=== PATIENT | female | born 1945 | race Caucasian/White ===

== ENCOUNTER 2018-10-22 11:40 | Day surgery (SDC) | payer OTHER, MEDICARE ==
[2018-10-22] MEDS ORDERED: POLYMYXIN/BACITRACIN 1L IRRIG (12:14)
[2018-10-22] MEDS ORDERED: ROCURONIUM 50 MG INJ (12:27)
[2018-10-22] MEDS ORDERED: FENTAnyl 50 MCG/ML VIAL (12:27)
[2018-10-22] MEDS ORDERED: LIDOCAINE 2% (SDV) 5 ML INJ (12:27)
[2018-10-22] MEDS ORDERED: ETOMIDATE 20 MG INJ (12:27)
[2018-10-22] MEDS ORDERED: CEFAZOLIN 1 GM INJ (13:36)
[2018-10-22] MEDS ORDERED: FAMOTIDINE 20 MG INJ (13:40)
[2018-10-22] MEDS ORDERED: METOCLOPRAMIDE 10 MG INJ (13:40)
[2018-10-22] MEDS ORDERED: ONDANSETRON 4 MG INJ (13:40)
[2018-10-22] MEDS ORDERED: IOHEXOL 300MG/ML 30 ML BTL (14:27)
[2018-10-22] MEDS ORDERED: LABETALOL HCL 20MG INJ IV (14:30)
[2018-10-22] MEDS ORDERED: HYDROmorphONE 1 MG/5 ML IV SYRINGE IV ×2 (14:30)
[2018-10-22] MEDS ORDERED: OXYCODONE/ACETAMINOPHEN (5/325) TAB PO ×2 (14:30)
[2018-10-22] MEDS ORDERED: EPHEDrine 25 MG/5 ML SYG (14:46)
[2018-10-22] MEDS: THROMBIN 5000 UNIT (RECOTHROM) VIAL (15:00)
[2018-10-22] MEDS: HEPARIN 1000 UNITS/ML 10 ML INJ ×2 (15:00→15:07)
[2018-10-22] MEDS: GELATIN SIZE 100 SPONGE (15:00)
[2018-10-22] MEDS ORDERED: HEPARIN 1000 UNITS/ML 10 ML INJ (15:04)
[2018-10-22] MEDS: LIDOCAINE 1% (MPF) 30 ML INJ (15:06)
[2018-10-22] MEDS: BUPIVACAINE 0.25% (MPF) 30 ML INJ (15:06)
[2018-10-22] MEDS ORDERED: SUGAMMADEX SODIUM 200 MG/2 ML VIAL IV (15:07)
[2018-10-22] MEDS: hydrALAzine 20 MG INJ IV (16:11)
[2018-10-22] MEDS: HYDROmorphONE 1 MG/5 ML IV SYRINGE IV (16:20)
[2018-10-22] MEDS: ONDANSETRON 4 MG INJ IV (16:20)
== END 2018-10-22 19:00 | disposition home or self-care (01) ==
LOC: SUR 19:00 → SDS 11:40
DX: I12.0 Hypertensive chronic kidney disease with stage 5 chronic kidney disease or end stage renal disease (principal); E11.22 Type 2 diabetes mellitus with diabetic chronic kidney disease; N18.6 End stage renal disease; I25.10 Atherosclerotic heart disease of native coronary artery without angina pectoris; Z95.5 Presence of coronary angioplasty implant and graft; E78.5 Hyperlipidemia, unspecified; I48.91 Unspecified atrial fibrillation; Z87.891 Personal history of nicotine dependence
CPT/HCPCS: 36558; 71045

== ENCOUNTER 2018-11-19 10:40 | Emergency (ER) | payer SELFPAY, OTHER | END 2018-11-19 11:59 | disposition left against medical advice (07) | LOC: E/R 11:59 | DX: Z53.21 Procedure and treatment not carried out due to patient leaving prior to being seen by health care provider (principal) ==

== ENCOUNTER 2018-11-22 05:45 | Inpatient (IN) | payer MEDICARE, OTHER ==
[2018-11-22] MEDS ORDERED: FENTAnyl 50 MCG/ML VIAL (06:31)
[2018-11-22] MEDS ORDERED: IODIXANOL LOCM 100 ML BTL ×3 (06:31→08:07)
[2018-11-22] MEDS ORDERED: MIDAZOLAM 1 MG/ML 2 ML INJ (06:31)
[2018-11-22] MEDS ORDERED: LIDOCAINE 1% (MDV) 20 ML INJ (06:34)
[2018-11-22] MEDS ORDERED: NITROGLYCERIN (IC) 100 MCG/ML INJ (06:35)
[2018-11-22] MEDS ORDERED: hydrALAzine 20 MG INJ (08:07)
[2018-11-22] MEDS ORDERED: HEPARIN 25000 UNIT/250 ML ×2 (09:12→10:46)
[2018-11-22] MEDS: IODIXANOL LOCM 50 ML BTL (09:13)
[2018-11-22] MEDS: SOD CHLORIDE 0.9% 100 ML (09:13)
[2018-11-22] MEDS: IODIXANOL LOCM 100 ML BTL (09:13)
[2018-11-22] MEDS ORDERED: ASPIRIN 81 MG TAB PO (09:30)
[2018-11-22] MEDS ORDERED: CLOPIDOGREL 75 MG TAB PO (09:30)
[2018-11-22] MEDS ORDERED: GELATIN SIZE 100 SPONGE (09:54)
[2018-11-22] MEDS ORDERED: IOHEXOL 300MG/ML 30 ML BTL (09:58)
[2018-11-22] MEDS ORDERED: HEPARIN 1000 UNITS/ML 10 ML INJ IV (10:00)
[2018-11-22] MEDS: HEPARIN 1000 UNITS/ML 10 ML INJ IV (10:00)
[2018-11-22] MEDS ORDERED: SUCCINYLCHOLINE CHLORIDE 100 MG/5 ML SYG IV (10:29)
[2018-11-22] MEDS ORDERED: GLYCOPYRROLATE 0.4 MG INJ (10:29)
[2018-11-22] MEDS ORDERED: NEOSTIGMINE 3 MG/3 ML SYRINGE (10:29)
[2018-11-22] MEDS ORDERED: PROPOFOL 20 ML (10:29)
[2018-11-22] MEDS ORDERED: ROCURONIUM 50 MG INJ (10:29)
[2018-11-22] MEDS ORDERED: EPHEDrine 25 MG/5 ML SYG (10:29)
[2018-11-22] MEDS ORDERED: LIDOCAINE 2% (SDV) 5 ML INJ (10:29)
[2018-11-22] MEDS ORDERED: VANCOMYCIN 1 GM (PMX) 250 ML (11:01)
[2018-11-22] MEDS: HEPARIN 1000 UNITS/ML 10 ML INJ (11:33)
[2018-11-22] MEDS ORDERED: ONDANSETRON 4 MG INJ (12:28)
[2018-11-22] MEDS ORDERED: METOCLOPRAMIDE 10 MG INJ (12:28)
[2018-11-22] MEDS ORDERED: METOCLOPRAMIDE 10 MG INJ IV (12:30)
[2018-11-22] MEDS ORDERED: hydrALAzine 20 MG INJ IV (12:30)
[2018-11-22] MEDS ORDERED: ONDANSETRON 4 MG INJ IV (12:30)
[2018-11-22] MEDS ORDERED: HYDROmorphONE 0.5 MG/0.5 ML SYG IV ×3 (12:30)
[2018-11-22] MEDS ORDERED: FENTAnyl 50 MCG/ML VIAL IV ×3 (12:30)
[2018-11-22] MEDS ORDERED: MEPERIDINE 25 MG INJ IV (12:30)
[2018-11-22] MEDS ORDERED: MIDAZOLAM 1 MG/ML 2 ML INJ IV (12:30)
[2018-11-22] MEDS ORDERED: EPHEDrine 25 MG/5 ML SYG IV (12:30)
[2018-11-22] MEDS ORDERED: LABETALOL HCL 20MG INJ IV (12:30)
[2018-11-22] MEDS ORDERED: DIPHENHYDRAMINE 50 MG INJ IV (12:30)
[2018-11-22] MEDS: GELATIN SIZE 100 SPONGE TOP (12:34)
[2018-11-22] MEDS: THROMBIN 5000 UNIT (RECOTHROM) VIAL (12:34)
[2018-11-22] MEDS: HEPARIN 25000 UNITS/250 ML 250 ML IV (14:11)
[2018-11-22 14:33] LABS: ADD MAN DIFF? NO
[2018-11-22 14:38] LABS: BASOPHILS % 0.3 % (0.0-2.0); EOSINOPHILS # 0.1 10^3/ul (0.0-0.5); HEMATOCRIT 25.6 % (37.0-47.0); HEMOGLOBIN 7.5 g/dl (12.0-16.0); LYMPHOCYTES # 0.9 10^3/ul (0.8-2.9); LYMPHOCYTES % 9.7 % (15.0-51.0); MEAN CORPUSCULAR HEMOGLOBIN 29.3 pg (29.0-33.0); MEAN CORPUSCULAR HGB CONC 29.3 g/dl (32.0-37.0); MEAN PLATELET VOLUME 11.6 fl (7.4-10.4); MONOCYTE # 0.7 10^3/ul (0.3-0.9); MONOCYTES % 7.4 % (0.0-11.0); NEUTROPHIL # 7.5 10^3/ul (1.6-7.5); PLATELET COUNT 161 10^3/UL (140-415); RED BLOOD COUNT 2.56 10^6/ul (4.20-5.40)
[2018-11-22 14:38] LABS: WHITE BLOOD COUNT 9.3 10^3/ul (4.8-10.8)
[2018-11-22 14:57] LABS: ALANINE AMINOTRANSFERASE 7 IU/L (13-69); ALBUMIN 3.3 g/dl (3.3-4.9); ALBUMIN/GLOBULIN RATIO 1.22; ALKALINE PHOSPHATASE 113 IU/L (42-121); ANION GAP 10 (5-13); ASPARTATE AMINO TRANSFERASE 19 IU/L (15-46); BILIRUBIN,INDIRECT 0.2 mg/dl (0-1.1); BILIRUBIN,TOTAL 0.2 mg/dl (0.2-1.3); BLOOD UREA NITROGEN 40 mg/dl (7-20); CALCIUM 8.4 mg/dl (8.4-10.2); CARBON DIOXIDE 24 mmol/L (21-31); CHLORIDE 104 mmol/L (97-110); CREATININE 3.16 mg/dl (0.44-1.00); GLUCOSE 131 mg/dl (70-220); POTASSIUM 3.7 mmol/L (3.5-5.1); SODIUM 138 mmol/L (135-144)
[2018-11-22 15:02] LABS: INR 1.05; PROTIME 13.8 Sec (11.9-14.9); PT RATIO 1.1
[2018-11-22 15:16] LABS: PARTIAL THROMBOPLASTIN TIME 114.7 Sec (23.0-35.0)
[2018-11-22] MEDS ORDERED: GLUCAGON 1 MG INJ IM (16:00)
[2018-11-22] MEDS ORDERED: GLUCOSE GEL 15 GRAM TUBE BUCCAL (16:00)
[2018-11-22] MEDS ORDERED: GLUCOSE GEL 15 GRAM TUBE PO ×2 (16:00)
[2018-11-22] MEDS ORDERED: DEXTROSE 50% 50 ML SYRINGE IV ×2 (16:00)
[2018-11-22] MEDS: CALCIUM ACETATE 667 MG CAP PO (17:46)
[2018-11-22 18:06] LABS: IMMEDIATE SPIN CROSSMATCH 1 1
[2018-11-22] MEDS: INSULIN ASPART [NOVOLOG] 3 ML PEN SC ×2 (18:38→20:31)
[2018-11-22] MEDS: ALPRAZOLAM 0.5 MG TAB PO (19:54)
[2018-11-22] MEDS: HYDROCODONE/APAP (10/325) TAB PO (20:03)
[2018-11-22] MEDS: DOCUSATE SODIUM 100 MG CAP PO (20:28)
[2018-11-22] MEDS: ATORVASTATIN 40 MG TAB PO (20:28)
[2018-11-22 20:53] LABS: PARTIAL THROMBOPLASTIN TIME 98.9 Sec (23.0-35.0)
[2018-11-23] MEDS: HYDROCODONE/APAP (10/325) TAB PO ×3 (00:06→23:20)
[2018-11-23] MEDS: ACCU-CHEK XX (02:01)
[2018-11-23 02:45] LABS: ADD MAN DIFF? NO
[2018-11-23 02:46] LABS: BASOPHILS % 0.2 % (0.0-2.0); EOSINOPHILS # 0.1 10^3/ul (0.0-0.5); EOSINOPHILS % 0.5 % (0.0-7.0); HEMATOCRIT 26.2 % (37.0-47.0); LYMPHOCYTES # 0.9 10^3/ul (0.8-2.9); LYMPHOCYTES % 9.3 % (15.0-51.0); MEAN CORPUSCULAR HEMOGLOBIN 30.1 pg (29.0-33.0); MEAN CORPUSCULAR HGB CONC 30.5 g/dl (32.0-37.0); MEAN CORPUSCULAR VOLUME 98.5 fl (82.0-101.0); MEAN PLATELET VOLUME 11.1 fl (7.4-10.4); MONOCYTE # 0.8 10^3/ul (0.3-0.9); MONOCYTES % 8.9 % (0.0-11.0); NEUTROPHIL # 7.4 10^3/ul (1.6-7.5); NEUTROPHILS % 80.6 % (39.0-77.0); PLATELET COUNT 150 10^3/UL (140-415); RED BLOOD COUNT 2.66 10^6/ul (4.20-5.40); RED CELL DISTRIBUTION WIDTH 16.4 % (11.5-14.5)
[2018-11-23 02:46] LABS: WHITE BLOOD COUNT 9.2 10^3/ul (4.8-10.8)
[2018-11-23 03:02] LABS: ANION GAP 10 (5-13); BLOOD UREA NITROGEN 44 mg/dl (7-20); CALCIUM 8.4 mg/dl (8.4-10.2); CARBON DIOXIDE 23 mmol/L (21-31); CHLORIDE 103 mmol/L (97-110); CREATININE 3.92 mg/dl (0.44-1.00); GLUCOSE 147 mg/dl (70-220); POTASSIUM 4.6 mmol/L (3.5-5.1); SODIUM 136 mmol/L (135-144)
[2018-11-23 03:15] LABS: PARTIAL THROMBOPLASTIN TIME 87.6 Sec (23.0-35.0)
[2018-11-23] MEDS: CALCIUM ACETATE 667 MG CAP PO ×4 (07:35→17:48)
[2018-11-23] MEDS: INSULIN ASPART [NOVOLOG] 3 ML PEN SC ×4 (08:16→20:30)
[2018-11-23] MEDS: METOPROLOL 25 MG TAB PO ×3 (08:18→20:23)
[2018-11-23] MEDS: DOCUSATE SODIUM 100 MG CAP PO ×3 (08:18→20:26)
[2018-11-23] MEDS: FAMOTIDINE 20 MG TAB PO ×3 (08:18→20:22)
[2018-11-23] MEDS: PANTOPRAZOLE (EC) 40 MG TAB PO ×2 (08:19→09:00)
[2018-11-23] MEDS: ASPIRIN 81 MG TAB PO ×2 (08:19→09:00)
[2018-11-23] MEDS ORDERED: AMLODIPINE 10 MG TAB PO (09:00)
[2018-11-23] MEDS: morphine 2 MG INJ IV ×4 (12:28→23:20)
[2018-11-23 14:22] LABS: HEPATITIS B SURFACE ANTIGEN NEGATIVE (NEGATIVE)
[2018-11-23] MEDS: HEPARIN 25000 UNITS/250 ML 250 ML IV (14:42)
[2018-11-23] MEDS: ALTEPLASE (CATHFLO) 2 MG INJ CATHETER (15:50)
[2018-11-23] MEDS: EPOETIN ALFA-EPBX (ESRD) 10,000 UNIT/ML VIAL SC (17:49)
[2018-11-23] MEDS: ALPRAZOLAM 0.5 MG TAB PO (19:15)
[2018-11-23] MEDS: ATORVASTATIN 40 MG TAB PO (20:22)
[2018-11-23] MEDS ORDERED: THROMBIN 5000 UNIT (RECOTHROM) VIAL (23:50)
[2018-11-23] MEDS ORDERED: LIDOCAINE 1% (MPF) 30 ML INJ (23:50)
[2018-11-23] MEDS ORDERED: GELATIN SIZE 100 SPONGE (23:50)
[2018-11-23] MEDS ORDERED: BUPIVACAINE 0.5% (SDV) 30 ML INJ (23:50)
[2018-11-23] MEDS ORDERED: HEPARIN 1000 UNITS/ML 10 ML INJ (23:51)
[2018-11-24] MEDS ORDERED: MIDAZOLAM 1 MG/ML 2 ML INJ (00:11)
[2018-11-24] MEDS ORDERED: FENTAnyl 50 MCG/ML VIAL (00:12)
[2018-11-24] MEDS ORDERED: ONDANSETRON 4 MG INJ (00:12)
[2018-11-24] MEDS ORDERED: VANCOMYCIN 1 GM (PMX) 250 ML (00:34)
[2018-11-24] MEDS: HEPARIN 1000 UNITS/ML 10 ML INJ (00:59)
[2018-11-24] MEDS ORDERED: SUGAMMADEX SODIUM 200 MG/2 ML VIAL IV (01:48)
[2018-11-24] MEDS: ACCU-CHEK XX (02:00)
[2018-11-24 05:05] LABS: ADD MAN DIFF? NO
[2018-11-24 05:10] LABS: BASOPHILS % 0.2 % (0.0-2.0); EOSINOPHILS # 0.1 10^3/ul (0.0-0.5); EOSINOPHILS % 0.7 % (0.0-7.0); HEMATOCRIT 25.7 % (37.0-47.0); HEMOGLOBIN 7.7 g/dl (12.0-16.0); LYMPHOCYTES # 0.7 10^3/ul (0.8-2.9); LYMPHOCYTES % 8.2 % (15.0-51.0); MEAN CORPUSCULAR HEMOGLOBIN 29.4 pg (29.0-33.0); MEAN CORPUSCULAR VOLUME 98.1 fl (82.0-101.0); MEAN PLATELET VOLUME 11.9 fl (7.4-10.4); MONOCYTE # 0.7 10^3/ul (0.3-0.9); MONOCYTES % 8.5 % (0.0-11.0); NEUTROPHIL # 6.9 10^3/ul (1.6-7.5); NEUTROPHILS % 81.8 % (39.0-77.0); PLATELET COUNT 138 10^3/UL (140-415); RED BLOOD COUNT 2.62 10^6/ul (4.20-5.40); RED CELL DISTRIBUTION WIDTH 16.6 % (11.5-14.5)
[2018-11-24 05:10] LABS: WHITE BLOOD COUNT 8.5 10^3/ul (4.8-10.8)
[2018-11-24 05:35] LABS: ANION GAP 10 (5-13); BLOOD UREA NITROGEN 29 mg/dl (7-20); CALCIUM 8.7 mg/dl (8.4-10.2); CARBON DIOXIDE 25 mmol/L (21-31); CHLORIDE 102 mmol/L (97-110); CREATININE 3.13 mg/dl (0.44-1.00); GLUCOSE 127 mg/dl (70-220); MAGNESIUM 1.9 mg/dl (1.7-2.5); PHOSPHORUS 7.5 mg/dl (2.5-4.9); POTASSIUM 4.2 mmol/L (3.5-5.1); SODIUM 137 mmol/L (135-144)
[2018-11-24 07:15] LABS: PARTIAL THROMBOPLASTIN TIME > 180.0 Sec (23.0-35.0)
[2018-11-24] MEDS: DOCUSATE SODIUM 10 MG/ML (10ML CUP) PO ×2 (09:17→20:13)
[2018-11-24] MEDS: PANTOPRAZOLE (EC) 40 MG TAB PO (09:17)
[2018-11-24] MEDS: morphine 2 MG INJ IV (09:17)
[2018-11-24] MEDS: ASPIRIN 81 MG TAB PO (09:18)
[2018-11-24] MEDS: METOPROLOL 25 MG TAB PO ×2 (09:18→20:14)
[2018-11-24] MEDS: FAMOTIDINE 20 MG TAB PO (09:18)
[2018-11-24] MEDS: CALCIUM ACETATE 667 MG CAP PO ×3 (09:18→18:45)
[2018-11-24] MEDS: INSULIN ASPART [NOVOLOG] 3 ML PEN SC ×4 (09:35→20:54)
[2018-11-24 10:21] LABS: PARTIAL THROMBOPLASTIN TIME 44.2 Sec (23.0-35.0)
[2018-11-24] MEDS: SOD CHLORIDE 0.9% 100 ML (10:40)
[2018-11-24] MEDS: IOHEXOL 100 ML (10:40)
[2018-11-24] MEDS: HEPARIN 25000 UNITS/250 ML 250 ML IV (11:33)
[2018-11-24 13:29] LABS: PARTIAL THROMBOPLASTIN TIME 29.7 Sec (23.0-35.0)
[2018-11-24] MEDS: ACETAMINOPHEN 325 MG TAB PO (18:44)
[2018-11-24] MEDS: ATORVASTATIN 40 MG TAB PO (20:13)
[2018-11-24] MEDS: CEFEPIME 1GM/50 ML (PMX) 50 ML IVPB (20:14)
[2018-11-24 20:15] LABS: PARTIAL THROMBOPLASTIN TIME 58.9 Sec (23.0-35.0)
[2018-11-24 20:25] LABS: LACTIC ACID 2.7 mmol/L (0.5-2.0)
[2018-11-24 22:48] LABS: PROCALCITONIN 1.41 ng/mL (0.00-0.10)
[2018-11-25] MEDS: ACETAMINOPHEN 325 MG TAB PO (00:36)
[2018-11-25] MEDS: ACCU-CHEK XX (02:00)
[2018-11-25 03:23] LABS: WHITE BLOOD COUNT 15.2 10^3/ul (4.8-10.8)
[2018-11-25 03:23] LABS: ABNORMAL IP MESSAGE 1; HEMATOCRIT 24.9 % (37.0-47.0); HEMOGLOBIN 7.3 g/dl (12.0-16.0); MEAN CORPUSCULAR HGB CONC 29.3 g/dl (32.0-37.0); MEAN CORPUSCULAR VOLUME 98.8 fl (82.0-101.0); MEAN PLATELET VOLUME 12.3 fl (7.4-10.4); PLATELET COUNT 174 10^3/UL (140-415); RED BLOOD COUNT 2.52 10^6/ul (4.20-5.40); RED CELL DISTRIBUTION WIDTH 16.3 % (11.5-14.5)
[2018-11-25 03:31] LABS: POSITIVE DIFF @See below
[2018-11-25 03:32] LABS: ADD MAN DIFF? YES
[2018-11-25 03:47] LABS: PARTIAL THROMBOPLASTIN TIME 105.6 Sec (23.0-35.0)
[2018-11-25 03:47] LABS: ANION GAP 17 (5-13); BLOOD UREA NITROGEN 47 mg/dl (7-20); CALCIUM 8.5 mg/dl (8.4-10.2); CARBON DIOXIDE 17 mmol/L (21-31); CHLORIDE 99 mmol/L (97-110); GLUCOSE 167 mg/dl (70-220); MAGNESIUM 2.1 mg/dl (1.7-2.5); PHOSPHORUS 10.9 mg/dl (2.5-4.9); POTASSIUM 5.6 mmol/L (3.5-5.1); SODIUM 133 mmol/L (135-144)
[2018-11-25 03:58] LABS: CREATININE 4.63 mg/dl (0.44-1.00)
[2018-11-25 04:29] LABS: ANISOCYTOSIS 1+ (0-0); BAND NEUTROPHILS #M 3.8 10^3/ul (0.0-0.6); BAND NEUTROPHILS % (M) 25 % (0-4); EOSINOPHILS % (M) 1 % (0-7); LYMPHOCYTES % (M) 7 % (15-51); MONOCYTE #M 1.2 10^3/ul (0.3-0.9); MONOCYTES % (M) 8 % (0-11); MYELOCYTES #M 0.1 10^3/ul (0.0-0.0); MYELOCYTES % (M) 1 % (0-0); PLATELET ESTIMATE NORMAL; POIKILOCYTOSIS 1+ (0-0); POLYCHROMASIA 1+ (0-0); SEG NEUT #M 9.4 10^3/ul (1.6-7.5); SEGMENTED NEUTROPHILS (M) % 58 % (39-77); SMUDGE%M 1 % (0-0)
[2018-11-25] MEDS ORDERED: VANCOMYCIN IV PER PHARMACY XX (06:30)
[2018-11-25] MEDS: VANCOMYCIN 500 MG (PMX) 100 ML IVPB (06:34)
[2018-11-25] MEDS ORDERED: AMIODARONE 150 MG INJ (07:00)
[2018-11-25] MEDS ORDERED: EPINEPHrine 0.1 MG/ML SYG ×2 (07:00)
[2018-11-25] MEDS ORDERED: NA BICARBONATE 8.4% 50 ML SYG ×3 (07:00→17:22)
[2018-11-25] MEDS ORDERED: CA CHLORIDE 10% 10 ML SYRINGE (07:00)
[2018-11-25] MEDS ORDERED: DEXTROSE 50% 50 ML SYRINGE (07:00)
[2018-11-25] MEDS: SOD CHLORIDE 0.9% 500 ML IV (08:20)
[2018-11-25] MEDS: SOD CHLORIDE 0.9% 1,000 ML IV (08:21)
[2018-11-25] MEDS: CALCIUM ACETATE 667 MG CAP PO ×2 (08:24→12:57)
[2018-11-25] MEDS: INSULIN ASPART [NOVOLOG] 3 ML PEN SC ×2 (08:38→13:01)
[2018-11-25 11:08] LABS: LACTIC ACID 4.9 mmol/L (0.5-2.0)
[2018-11-25 11:12] LABS: PARTIAL THROMBOPLASTIN TIME 115.1 Sec (23.0-35.0)
[2018-11-25 12:07] LABS: PROCALCITONIN 16.69 ng/mL (0.00-0.10)
[2018-11-25] MEDS: DOCUSATE SODIUM 10 MG/ML (10ML CUP) PO (12:57)
[2018-11-25] MEDS: ASPIRIN 81 MG TAB PO (12:57)
[2018-11-25] MEDS: FAMOTIDINE 20 MG TAB PO (12:57)
[2018-11-25] MEDS: SOD CHLORIDE 0.9% 100 ML (12:58)
[2018-11-25] MEDS: IOHEXOL 100 ML (12:58)
[2018-11-25] MEDS ORDERED: DOPamine-D5W 1.6 MG/ML 250 ML (16:56)
== END 2018-11-25 17:34 | disposition expired | DRG 252 ==
LOC: SDS 05:45 → REC 09:01 → TEL 09:01 → ICU 09:39
PROVIDERS: Internal Medicine Interventional Cardiology; Pediatrics Neonatal-Perinatal Medicine
PROC: 4A023N7 Measurement of Cardiac Sampling and Pressure, Left Heart, Percutaneous Approach (ICD-10-PCS; principal; 2018-11-22 07:08)
PROC: 04QK0ZZ Repair Right Femoral Artery, Open Approach (ICD-10-PCS; 2018-11-22 07:08)
PROC: 04CK0ZZ Extirpation of Matter from Right Femoral Artery, Open Approach (ICD-10-PCS; 2018-11-22 07:08)
PROC: 5A1D70Z Performance of Urinary Filtration, Intermittent, Less than 6 Hours Per Day (ICD-10-PCS; 2018-11-22 07:08)
PROC: 04JY0ZZ Inspection of Lower Artery, Open Approach (ICD-10-PCS; 2018-11-22 07:08)
PROC: 0JCL0ZZ Extirpation of Matter from Right Upper Leg Subcutaneous Tissue and Fascia, Open Approach (ICD-10-PCS; 2018-11-22 07:08)
PROC: B211YZZ Fluoroscopy of Multiple Coronary Arteries using Other Contrast (ICD-10-PCS; 2018-11-22 07:08)
PROC: 5A1935Z Respiratory Ventilation, Less than 24 Consecutive Hours (ICD-10-PCS; 2018-11-22 07:08)
PROC: 0BH17EZ Insertion of Endotracheal Airway into Trachea, Via Natural or Artificial Opening (ICD-10-PCS; 2018-11-22 07:08)
PROC: 5A12012 Performance of Cardiac Output, Single, Manual (ICD-10-PCS; 2018-11-22 07:08)
PROC: 04HL33Z Insertion of Infusion Device into Left Femoral Artery, Percutaneous Approach (ICD-10-PCS; 2018-11-22 07:08)
PROC: 5A2204Z Restoration of Cardiac Rhythm, Single (ICD-10-PCS; 2018-11-22 07:08)
DX: I21.4 Non-ST elevation (NSTEMI) myocardial infarction (principal); N18.6 End stage renal disease; I13.2 Hypertensive heart and chronic kidney disease with heart failure and with stage 5 chronic kidney disease, or end stage renal disease; I50.32 Chronic diastolic (congestive) heart failure; I48.92 Unspecified atrial flutter; E87.2 Acidosis; T82.868A Thrombosis due to vascular prosthetic devices, implants and grafts, initial encounter; L76.32 Postprocedural hematoma of skin and subcutaneous tissue following other procedure; D64.9 Anemia, unspecified; E87.5 Hyperkalemia; E11.22 Type 2 diabetes mellitus with diabetic chronic kidney disease; I25.10 Atherosclerotic heart disease of native coronary artery without angina pectoris; I48.0 Paroxysmal atrial fibrillation; I72.4 Aneurysm of artery of lower extremity; I46.9 Cardiac arrest, cause unspecified; Y83.8 Other surgical procedures as the cause of abnormal reaction of the patient, or of later complication, without mention of misadventure at the time of the procedure; Z99.2 Dependence on renal dialysis; Z95.828 Presence of other vascular implants and grafts; Z79.02 Long term (current) use of antithrombotics/antiplatelets; Z79.4 Long term (current) use of insulin; Z79.82 Long term (current) use of aspirin
CPT/HCPCS: 31500; 36430; 70450; 71045; 71275; 73706; 75635; 80048; 80053; 82962; 83605; 83735; 84100; 84145; 85025; 85610; 85730; 86850; 86900; 86901; 86920; 87040-91; 87081; 87340; 88305; 90935; 92950; 93005; 93458; 94002